=== PATIENT | male | born 1945 | race Caucasian/White ===

== ENCOUNTER 2016-08-17 16:00 | Observation (INO) | payer OTHER ==
--- NOTE | 2016-08-17 16:10 | PDOC ---
History of Present Illness <Beto Luna - Last Filed: 08/17/16 17:01> - History of Present Illness Initial Comments: 08/22/16 08:21 Chief complaint: Left facial numbness and blurred vision History of present illness: The patient is sent in by his primary physician , with the above symptoms starting this morning. 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 He has not noticed any facial weakness or drooping Review of systems: Admits a mild left occipital headache, throat pain primarily on the left side, which she attributes to a URI. No focal sensory or motor symptoms. No instability of gait. No chest pain, shortness of breath, abdominal pain, nausea, vomiting, diarrhea, urinary tract symptoms, hematemesis, melena, bloody stool. All remaining symptoms reviewed and found to be negative. Past medical history: atrial fibrillation maintained on Xarelto, hypertension, CAD with cardiac stents, right hip replacement, dental implant, Cunningham's palsy as noted. Social/family history: Social alcohol, no tobacco no prescription drugs, employed, active, without significant disability Family history: Reviewed and noncontributory including DVT/PE, other blood clots , [place], stroke, PVD Physical exam: Fully alert and oriented, well-developed well-nourished, no acute distress, cheerful and cooperative Afebrile, vital signs normal PERRLA 4 mm, fundi benign with sharp disc margins and good central venous pulsations. ENT clear Neck supple without bruit mass or nodes No carotid bruits or thrills. No bruits or thrills over the vertebral arteries Chest clear to P&A CV regular without murmur or gallop pulses full and symmetric no JVD or edema. No bruits carotid are otherwise Abdomen soft nontender without mass or organomegaly Neurological C2 to 12 intact. No demonstrable sensory deficit in the area of symptoms on the face. No facial weakness or drooping. Extremities no CCE Skin clear, no rash, adequate turgor and mucous membranes Impression: Patient with A. fib on anticoagulants, rule out CVA, TIA, most likely vertebral artery or carotid artery dissection Plan: CT and further imaging depending on results. Discussion with the patient' s primary physician, children's service worker. <Marlon Dewey - Last Filed: 08/22/16 08:29> - General Chief Complaint: CVA/TIA Stated Complaint: LEFT FACIAL NUMBNESS Time Seen by Provider: 08/17/16 16:07 Past History <Beto Luna - Last Filed: 08/17/16 17:01> - Past Medical History Anemia: No Asthma: Yes ( CHILD) Cancer: No Cardiac Disorders: Yes CVA: No COPD: No CHF: No Dementia: No Diabetes: Yes GI Disorders: No Disorders: No HTN: Yes Hypercholesterolemia: Yes Liver Disease: No Seizures: No Thyroid Disease: No - Surgical History Abdominal Surgery: No Appendectomy: No Cardiac Surgery: Yes (CARDIAC STENT 1997 2013) Cholecystectomy: No Lung Surgery: No Neurologic Surgery: No Orthopedic Surgery: Yes (LEFT HIP REPLACEMENT) - Immunization History Td Vaccination: No Immunization Up to Date: No - Psycho/Social/Smoking Cessation Hx Anxiety: No Suicidal Ideation: No Smoking Status: No Smoking History: Former smoker Have you smoked in the past 12 months: No Number of Cigarettes Smoked Daily: 0 If you are a former smoker, when did you quit?: 1995 Hx Alcohol Use: Yes Drug/Substance Use Hx: No Substance Use Type: Alcohol Hx Substance Use Treatment: No <Marlon Dewey - Last Filed: 08/22/16 08:29> - Past Medical History Allergies/Adverse Reactions: Allergies Allergy/AdvReac Type Severity Reaction Status Date / Time epinephrine Allergy Intermediate Verified 11/22/15 14:15 Iodinated Contrast Media - Allergy Intermediate Hives Verified 11/22/15 14:15 Oral and ticlopidine HCl [From Ticlid] Allergy Intermediate Rash Verified 11/22/15 14:15 warfarin sodium Allergy Verified 08/17/16 21:17 [From Coumadin] IV contrast Allergy Uncoded 08/17/16 17:43 Home Medications: Ambulatory Orders Allopurinol [Zyloprim -] 300 mg PO DAILY 11/22/15 Amlodipine Besylate 10 mg PO DAILY 11/22/15 Aspirin [Nanci Chewable Aspirin] 81 mg PO DAILY 11/22/15 Atenolol [Tenormin -] 50 mg PO DAILY 11/22/15 Furosemide 20 mg PO DAILY 11/22/15 Losartan Potassium [Cozaar] 100 mg PO DAILY 11/22/15 Potassium Chloride [Klor-Con M15] 15 meq PO DAILY 11/22/15 Rosuvastatin Calcium [Crestor] 20 mg PO DAILY 11/22/15 Sitagliptin Phosphate [Januvia] 50 mg PO DAILY 11/22/15 Rivaroxaban [Xarelto -] 20 mg PO DAILY 08/17/16 Prednisone [Deltasone -] 5 mg PO ASDIR #78 tab 08/18/16 Valacyclovir HCl [Valtrex -] 1,000 mg PO TID #21 tablet 08/18/16 *Physical Exam - Vital Signs Last Vital Signs Temp Pulse Resp BP Pulse Ox 97.8 F 52 L 18 164/67 100 08/17/16 16:00 08/17/16 16:00 08/17/16 16:00 08/17/16 16:00 08/17/16 16:00 <Beto Luna - Last Filed: 08/17/16 17:01> ED Treatment Course - RADIOLOGY Radiograph Interpretation: 08/17/16 16:[address] WITHOUT CONTRAST impressions reported by : No evidence of acute intracranial pathology. <Beto Luna - Last Filed: 08/17/16 17:01> - LABORATORY CBC & Chemistry Diagram: 08/18/16 07:00 08/18/16 07:00 <Marlon Dewey - Last Filed: 08/22/16 08:29> Progress Note - Progress Note Progress Note: With primary physician, Dr. Lind. Discussed the concern regarding vertebral artery disease or dissection. He agrees that imaging study should be performed and recommends contacting the patient's children's service worker regarding the status of the stents Dr. Valera was contacted by phone. He is the patient's children's service worker. He states that there is no contraindication to MRI with immature cardiac stent. However, upon further questioning the patient revealed that he had a hip prosthesis as well as dental implants, which are contraindications. Further questioning of the patient revealed that his reaction to contrast dye in the past was minor, consisting only of mild pruritus and a few welts on his right arm. He agrees to receive contrast with premedication.Benadryl and steroids will be given prior to CTA. <Marlon Dewey - Last Filed: 08/22/16 08:29> Medical Decision Making - Medical Decision Making 08/17/16 18:18 CT without contrast is negative. No intracranial bleed or other abnormal findings were revealed. Continued concern for vertebral artery disease because of the patient's sore throat and occipital headache, as well as unexplained facial numbness and blurred vision. Imaging of the circulatory system was discussed with the primary physician as well as children's service worker. MRA would be ideal, but the patient has a hip prosthesis as well as dental implants. CTA will be attempted, with premedication because of a mild prior reaction to contrast material which included only itching and a few welts of his right arm. CTA performed with premedication, without incident. No ALLERGIC reaction developed. There was no pruritus, urticaria, respiratory or cardiac symptoms. Awaiting radiologist interpretation of CTA. Symptoms have been stable. Signed out to Dr. Cueto at 7 PM pending reading of the CT and further medical management. 08/22/16 08:27 <Marlon Dewey - Last Filed: 08/22/16 08:29> *DC/Admit/Observation/Transfer - Attestations Scribe Attestion: 08/17/16 17:01 Documentation prepared by Beto Luna, acting as medical specialist for Marlon Resendiz MD. <Beto Luna - Last Filed: 08/17/16 17:01> <Marlon Dewey - Last Filed: 08/22/16 08:29> Diagnosis at time of Disposition: Left facial numbness - Discharge Dispostion Disposition: HOME Condition at time of disposition: Improved - Prescriptions - Referrals
[2016-08-17 16:14] VITALS: BMI 28.5
[2016-08-17 17:51] LABS: BASOPHIL 0.7 % (0-2.0); EOSINOPHIL 6.7 % (0-4.5); MCH 31.9 pg (25.7-33.7); MCHC 33.3 g/dl (32.0-35.9); MEAN CELL VOLUME 95.8 fl (80-96); MEAN PLT VOLUME 7.7 fl (7.5-11.1); NEUTROPHILS 60.5 % (42.8-82.8); PLATELET COUNT 248 K/MM3 (134-434); RDW 12.9 % (11.9-15.9); WHITE BLOOD COUNT 8.3 K/mm3 (4.0-10.0)
[2016-08-17 18:05] LABS: ALBUMIN 4.3 g/dl (3.5-5.0); BILIRUBIN,TOTAL 1.2 mg/dl (0.2-1.0); CALCIUM 9.3 mg/dl (8.4-10.2); CREATININE 1.3 mg/dl (0.6-1.3); TOT PROT 7.2 g/dl (6.4-8.3)
[2016-08-17] MEDS ORDERED: methylPREDNISolone NA SUCC 125 MG/2 ML VIAL ONE (18:11)
[2016-08-17] MEDS ORDERED: SODIUM CHLORIDE 1,000 ML IV STA (18:13)
[2016-08-17] MEDS ORDERED: methylPREDNISolone NA SUCC 125 MG/2 ML VIAL IVPB ONE (18:14)
--- NOTE | 2016-08-17 21:16 | PDOC ---
*Physical Exam - Vital Signs Last Vital Signs Temp Pulse Resp BP Pulse Ox 97.8 F 58 L 16 135/76 98 08/17/16 16:00 08/17/16 19:00 08/17/16 19:00 08/17/16 19:00 08/17/16 19:00 ED Treatment Course - LABORATORY CBC & Chemistry Diagram: 08/17/16 17:30 08/17/16 17:30 - ADDITIONAL ORDERS Additional order review: Laboratory Results 08/17/16 17:30 Sodium 135 L Potassium 4.2 Chloride 101 Carbon Dioxide 26 Anion Gap 8 BUN 16 Creatinine 1.3 Creat Clearance w eGFR 54.73 Random Glucose 144 H Calcium 9.3 Total Bilirubin 1.2 H AST 39 ALT 37 Alkaline Phosphatase 53 Total Protein 7.2 Albumin 4.3 08/17/16 17:30 RBC 4.59 MCV 95.8 MCHC 33.3 RDW 12.9 MPV 7.7 Neutrophils % 60.5 Lymphocytes % 25.4 Monocytes % 6.7 Eosinophils % 6.7 H Basophils % 0.7 - Medications Given in the ED: ED Medications Discontinued Medications Generic Name Dose Route Start Last Admin Trade Name Epiq PRN Reason Stop Dose Admin Diphenhydramine HCl 50 mg 08/17/16 18:13 08/17/16 18:15 Benadryl Injection - IVPUSH 08/17/16 18:14 50 mg ONCE ONE Administration Sodium Chloride 1,000 mls @ 1,000 mls/hr 08/17/16 18:13 08/17/16 17:30 Normal Saline - IV 08/17/16 19:12 1,000 mls/hr ASDIR STA Administration Methylprednisolone Sodium Succinate 125 mg 08/17/16 18:14 08/17/16 18:20 Solu-Medrol - IVPB 08/17/16 18:15 125 mg ONCE ONE Administration Progress Note - Progress Note Progress Note: Care of this patient received from Dr. Nowak. Briefly, this 71-year-old patient with a history of coronary artery disease/ hypertension/Cunningham's palsy was sent here by his PMD, Dr. Lind. The patient had called Dr. Lind after developing left facial numbness today. The patient states that when he had [place]'s palsy a few years ago he also had numbness of the left side of his face. He states that it is very similar to what he felt at that time. He has not, however, had any weakness of his face today. He denies any other neurologic symptoms. Noncontrast head CT was negative for acute abnormalities Because the patient has hip prosthesis and dental implants, MRA could not be performed to rule out vascular dissection or aneurysm. CT angiogram was performed (with premedication with diphenhydramine/prednisolone because of possible IV contrast ALLERGY). CTA of the brain showed no evidence of intracranial aneurysm, stenosis, occlusion or dissection. The patient was somewhat sleepy for a while after the IV Benadryl but stated that he had some improvement in the numbness in the left side of his face. No new symptoms reported. Results discussed with Dr. Lind. Neurology was consult to by phone for discussion of the case and for advice regarding admission versus outpatient follow-up. Since the patient has been followed by Dr. Marietta Orozco, she was contacted by phone. She states that she does not admit to this hospital but given the patient's risk factors, she suggested that he should be admitted for observation, with neurologic consultation/echocardiogram. Neurology service generation technician (Dr. Lolis castle) contacted and case discussed with . Likewise, she recommended admission for observation, neurologic consultation and echocardiogram. Results of the workup, as well as recommendations for observation discussed with the patient and his . After speaking to Dr. Lind by phone, patient agreed to observation admission. Admission will be through [facility] service: Dr. Brandt contacted and patient admitted to her service. Consultation with [facility] as well as [facility] cardiology group will be obtained. Medical Decision Making - Medical Decision Making 08/17/16 22:53 Case discussed with [place] neurologic consult: Patient should be admitted as observation for full neurologic consultation and echocardiogram. This was communicated to the patient and his as well as patient's PMD, Dr. Lind. Case discussed with Dr. Wilcox of [facility]. Patient will be admitted for observation. *DC/Admit/Observation/Transfer Diagnosis at time of Disposition: Left facial numbness - Discharge Dispostion Condition at time of disposition: Stable Admit: Yes - Referrals - Patient Instructions - Post Discharge Activity
[2016-08-18] MEDS ORDERED: amLODIPine BESYLATE 5 MG TABLET (FP) PO SCH ×3 (00:30→10:00)
[2016-08-18] MEDS ORDERED: ROSUVASTATIN CA 20 MG TABLET (FP) PO SCH ×2 (00:30→22:00)
[2016-08-18] MEDS ORDERED: RIVAROXABAN 20 MG TABLET PO SCH ×2 (00:30→10:00)
[2016-08-18] MEDS ORDERED: ALLOPURINOL 100 MG TABLET (FP) PO SCH ×3 (00:30→10:00)
--- NOTE | 2016-08-18 01:03 | HP ---
CHIEF COMPLAINT: Left facial numbness PCP: Dr. Lind HISTORY OF PRESENT ILLNESS: This is a 71 year old male with a past medical history of [place] palsy L side, DM , HTN, HLD, CAD s/p stent, atrial fibrillation who presented to the emergency department with left facial numbness and headache. Pt denies any trouble walking or dizziness. States he had a sore throat a few days ago, but that has since resolved. Pt likens the sensation on the left side of his face to the same sensation he had towards the end of his bells palsy episode. Denies CP, SOB , abdominal pain, N/V/D. ER course was notable for: (1) Negative CT head (2) Normal CTA brain Recent Travel: pt denies PAST MEDICAL HISTORY: Sciota palsy 3 years ago Asthma as a child, no recurrence DM HTN HLD CAD s/p stent , allergies atrial fibrillation on xarelto PAST SURGICAL HISTORY: L hip replacement dental implants stent placement Social History: Smoking: quit 20 years ago, 60packyear history Alcohol: occasional - holidays/spec occ Drugs: pt denies Family History: mother age 82, CVA father age 64, "circulatory collapse," had HTN and angina sister age 72, some kind of CA, had BrCA in her 50s brother with ?urethral / bladder CA, s/p cystectomy, s/p ileal conduit Allergies epinephrine Allergy (Intermediate, Verified 11/22/15 14:15) Iodinated Contrast Media - Oral and Allergy (Intermediate, Verified 11/22/15 14: 15) Hives ticlopidine HCl [From Ticlid] Allergy (Intermediate, Verified 11/22/15 14:15) Rash warfarin sodium [From Coumadin] Allergy (Verified 08/17/16 21:17) IV contrast Allergy (Uncoded 08/17/16 17:43) HOME MEDICATIONS: 3 Medication Instructions Recorded Allopurinol [Zyloprim -] 300 mg PO DAILY 11/22/15 Amlodipine Besylate 10 mg PO DAILY 11/22/15 Aspirin [Nanci Chewable] 81 mg PO DAILY 11/22/15 Atenolol [Tenormin -] 50 mg PO DAILY 11/22/15 Furosemide 20 mg PO DAILY 11/22/15 Losartan Potassium [Cozaar] 100 mg PO DAILY 11/22/15 Potassium Chloride [Klor-Con M15] 15 meq PO DAILY 11/22/15 Rosuvastatin Calcium [Crestor] 20 mg PO DAILY 11/22/15 Sitagliptin Phosphate [Januvia] 50 mg PO DAILY 11/22/15 Rivaroxaban [Xarelto -] 20 mg PO DAILY 08/17/16 REVIEW OF SYSTEMS CONSTITUTIONAL: Absent: fever, chills, diaphoresis, generalized weakness, malaise, loss of appetite, weight change HEENT: Absent: rhinorrhea, nasal congestion, throat pain, throat swelling, difficulty swallowing, mouth swelling, ear pain, eye pain, visual changes CARDIOVASCULAR: Absent: chest pain, syncope, palpitations, irregular heart rate, lightheadedness , peripheral edema RESPIRATORY: Absent: cough, shortness of breath, dyspnea with exertion, orthopnea, wheezing, stridor, hemoptysis GASTROINTESTINAL: Absent: abdominal pain, abdominal distension, nausea, vomiting, diarrhea, constipation, melena, hematochezia GENITOURINARY: Absent: dysuria, frequency, urgency, hesitancy, hematuria, flank pain, genital pain MUSCULOSKELETAL: Absent: myalgia, arthralgia, joint swelling, back pain, neck pain SKIN: Absent: rash, itching, pallor HEMATOLOGIC/IMMUNOLOGIC: Absent: easy bleeding, easy bruising, lymphadenopathy, frequent infections ENDOCRINE: Absent: unexplained weight gain, unexplained weight loss, heat intolerance, cold intolerance NEUROLOGIC: Present: headache, focal weakness or paresthesias Absent: dizziness, unsteady gait, seizure, mental status changes, bladder or bowel incontinence PSYCHIATRIC: Absent: anxiety, depression, suicidal or homicidal ideation, hallucinations. PHYSICAL EXAMINATION Vital Signs - 24 hr 3 08/17/16 08/17/16 08/17/16 16:00 19:00 23:02 Temperature 97.8 F 98.9 F Pulse Rate 52 L Pulse Rate [ 58 L 61 Left Apical] Respiratory 18 16 18 Rate Blood Pressure 164/67 Blood Pressure 135/76 146/66 [Right Arm] O2 Sat by Pulse 100 98 96 Oximetry (%) 3 08/17/16 23:34 Temperature 97.9 F Pulse Rate 59 L Pulse Rate [ Left Apical] Respiratory 19 Rate Blood Pressure 151/56 Blood Pressure [Right Arm] O2 Sat by Pulse Oximetry (%) GENERAL: Awake, alert, and fully oriented, in no acute distress. HEAD: Normal with no signs of trauma. EYES: Pupils equal, round and reactive to light, extraocular movements intact, sclera anicteric, conjunctiva clear. No lid lag. EARS, NOSE, THROAT: Ears normal, nares patent, oropharynx clear without exudates. Moist mucous membranes. NECK: Normal range of motion, supple without lymphadenopathy, JVD, or masses. LUNGS: Breath sounds equal, clear to auscultation bilaterally. No wheezes, and no crackles. No accessory muscle use. HEART: Regular rate and rhythm, normal S1 and S2 without murmur, rub or gallop. ABDOMEN: Soft, nontender, not distended, normoactive bowel sounds, no guarding, no rebound, no masses. No hepatomegaly or splenomegaly. MUSCULOSKELETAL: Normal range of motion at all joints. No bony deformities or tenderness. No CVA tenderness. UPPER EXTREMITIES: 2+ pulses, warm, well-perfused. No cyanosis. No clubbing. Cap refill <2 seconds. No peripheral edema. LOWER EXTREMITIES: 2+ pulses, warm, well-perfused. No calf tenderness. No peripheral edema. NEUROLOGICAL: Cranial nerves II-XII intact. Normal speech. Normal gait. no focal weakness, MS equal bilateral upper and lower ext 5/5, no pronator drift PSYCHIATRIC: Cooperative. Good eye contact. Appropriate mood and affect. SKIN: Warm, dry, normal turgor, no rashes or lesions noted. Laboratory Results - last 24 hr 3 08/17/16 08/17/16 08/17/16 17:30 17:30 23:45 WBC 8.3 RBC 4.59 Hgb 14.6 Hct 43.9 MCV 95.8 MCHC 33.3 RDW 12.9 Plt Count 248 MPV 7.7 Neutrophils % 60.5 Lymphocytes % 25.4 Monocytes % 6.7 Eosinophils % 6.7 H Basophils % 0.7 Sodium 135 L Potassium 4.2 Chloride 101 Carbon Dioxide 26 Anion Gap 8 BUN 16 Creatinine 1.3 Creat Clearance w eGFR 54.73 POC Glucometer 217 Random Glucose 144 H Calcium 9.3 Total Bilirubin 1.2 H AST 39 ALT 37 Alkaline Phosphatase 53 Total Protein 7.2 Albumin 4.3 ECG: NSR, rate 7, sinus arrhythmia, QTC [address]: Impression: No evidence of acute intracranial pathology CTA Brain: IMPRESSION: NO ACUTE ABNORMALITY. No evidence of intracranial aneurysm, stenosis, occlusion or dissection ASSESSMENT/PLAN: 71yM with a PMH DM, HTN, HLD, CAD s/p stent, atrial fibrillation and [place] palsy presented to the ED with left side facial numbness. He is being admitted for observation and further management. L facial numbness r/o TIA - CT head and CTA brain unremarkable - neurological exam benign - neurology consult in AM - echocardiogram as per neurology Atrial fibrillation-paroxysmal? - on xarelto. Cont same. - now in sinus rhythm - cont atenolol - cardiac monitoring HTN - Cont amlodipine and atenolol. - SBP elevated at times. Cont to monitor and adjust meds PRN HLD - cont crestor CAD - cont ASA, crestor, atenolol. maintain BP control DM - cont home januvia - refusing insulin Sliding scale - cont FSBS AC/HS DVT PPX - low risk, pt ambulatory and LOS expected <48h - cont home xarelto FEN - tolerating po fluids - repeat bmp in am - diabetic diet Dispo: Pt currently requires inpatient observation and cardiac monitoring. Visit type - Emergency Visit Emergency Visit: Yes ED Registration Date: 08/17/16 Care time: The patient presented to the Emergency Department on the above date and was hospitalized for further evaluation of their emergent condition. - New Patient This patient is new to me today: Yes Date on this admission: 08/18/16 - Critical Care Critical Care patient: No
[2016-08-18] MEDS: INSULIN SLIDING SCALE (NOVOLOG) 1 VIAL SQ SCH ×3 (06:48→17:02)
[2016-08-18] MEDS ORDERED: sitaGLIPtin PHOSPHATE 50 MG TABLET PO SCH (07:00)
[2016-08-18 08:23] LABS: MCH 31.3 pg (25.7-33.7); MCHC 33.2 g/dl (32.0-35.9); MEAN CELL VOLUME 94.4 fl (80-96); NEUTROPHILS 90.4 % (42.8-82.8); PLATELET COUNT 227 K/MM3 (134-434); RDW 12.9 % (11.9-15.9); WHITE BLOOD COUNT 10.8 K/mm3 (4.0-10.0)
[2016-08-18 08:33] LABS: CALCIUM 8.7 mg/dl (8.4-10.2); CREATININE 1.2 mg/dl (0.6-1.3); MAGNESIUM 1.9 mg/dL (1.8-2.4); PHOSPHOROUS 3.5 mg/dl (2.5-4.6)
[2016-08-18] MEDS ORDERED: POTASSIUM CHLORIDE 15 MEQ PO SCH (10:00)
[2016-08-18] MEDS ORDERED: LOSARTAN POTASSIUM 50 MG TABLET (FP) PO SCH (10:00)
[2016-08-18] MEDS ORDERED: POTASSIUM CHLORIDE 40 MEQ/30 ML UNIT DOSE CUP PO SCH (10:00)
[2016-08-18] MEDS ORDERED: ATENOLOL 50 MG TABLET (FP) PO SCH (10:00)
[2016-08-18] MEDS ORDERED: ASPIRIN 81 MG CHEWABLE TABLETS PO SCH (10:00)
[2016-08-18] MEDS ORDERED: FUROSEMIDE 20 MG TABLET (FP) PO SCH (10:00)
--- NOTE | 2016-08-18 12:18 | EKG ---
Test Reason : Blood Pressure : / mmHG Vent. Rate : 067 BPM Atrial Rate : 067 BPM P-R Int : 170 ms QRS Dur : 090 ms QT Int : 418 ms P-R-T Axes : 047 -26 009 degrees QTc Int : 441 ms SINUS RHYTHM WITH SINUS ARRHYTHMIA NORMAL ECG NO PREVIOUS ECGS AVAILABLE Confirmed by MO ARTHUR MD ([id number]) on 08/18/2016 12:18:12 PM Referred By: Confirmed By:MO ARTHUR MD
--- NOTE | 2016-08-18 13:04 | PN ---
[id number] any headache or blurred vision. OBJECTIVE: patient is a 71 year old male with a past medical history of [place] palsy L side, DM, HTN, HLD, CAD s/p stent, atrial fibrillation (xarelto). patient was admitted to observation from the emergency department for r/o tia vs cva. Vital Signs Period Temp Pulse Resp BP Sys/Shields Pulse Ox Last 24 Hr 97.9 F-98.0 F 59-67 18-19 145-151/56-63 96-96 GENERAL: The patient is awake, alert, and fully oriented, in no acute distress. HEAD: Normal with no signs of trauma. EYES: PERRL, extraocular movements intact, sclera anicteric, conjunctiva clear. ptosis of left eye ENT: Ears normal, nares patent, oropharynx clear without exudates, moist mucous membranes. NECK: Trachea midline, full range of motion, supple. LUNGS: Breath sounds equal, clear to auscultation bilaterally, no wheezes, no crackles, no accessory muscle use. HEART: Regular rate and rhythm, S1, S2 , 3/6 systolic murmur, no rub or gallop. ABDOMEN: Soft, nontender, nondistended, normoactive bowel sounds, no guarding, no rebound, no hepatosplenomegaly, no masses. EXTREMITIES: 2+ pulses, warm, well-perfused, no edema. NEUROLOGICAL: flattening noted of left nasal labial fold, Normal speech, gait not observed, minimal left sided facial droop. PSYCH: Normal mood, normal affect. SKIN: Warm, dry, normal turgor, no rashes or lesions noted Laboratory Results - last 24 hr 08/17/16 08/18/16 08/18/16 23:45 06:41 07:00 WBC 10.8 H D RBC 4.19 Hgb 13.1 D Hct 39.6 MCV 94.4 MCHC 33.2 RDW 12.9 Plt Count 227 MPV 8.0 Neutrophils % 90.4 H D Lymphocytes % 9.0 D Monocytes % 0.6 L D Eosinophils % 0.0 D Basophils % 0.0 Sodium Potassium Chloride Carbon Dioxide Anion Gap BUN Creatinine POC Glucometer 217 163 Random Glucose Calcium Phosphorus Magnesium 08/18/16 08/18/16 07:00 11:36 WBC RBC Hgb Hct MCV MCHC RDW Plt Count MPV Neutrophils % Lymphocytes % Monocytes % Eosinophils % Basophils % Sodium 134 L Potassium 4.0 Chloride 103 Carbon Dioxide 25 Anion Gap 6 L BUN 21 H D Creatinine 1.2 POC Glucometer 194 Random Glucose 190 H D Calcium 8.7 Phosphorus 3.5 Magnesium 1.9 Active Medications Generic Name Dose Route Start Last Admin Trade Name Freq PRN Reason Stop Dose Admin Allopurinol 300 mg 08/18/16 01:05 08/18/16 01:05 Zyloprim - PO 300 mg HS SUE Administration Amlodipine Besylate 10 mg 08/18/16 01:05 08/18/16 01:05 Norvasc - PO 10 mg HS SUE Administration Aspirin 81 mg 08/18/16 10:00 08/18/16 09:28 Asa - PO 81 mg DAILY SUE Administration Atenolol 50 mg 08/18/16 10:00 08/18/16 09:28 Tenormin - PO 50 mg DAILY SUE Administration Furosemide 20 mg 08/18/16 10:00 08/18/16 09:28 Lasix - PO 20 mg DAILY SUE Administration Insulin Aspart 1 vial 08/18/16 07:00 08/18/16 11:38 Novolog Vial Sliding Scale - SQ Not Given ACHS [facility] Protocol Losartan Potassium 100 mg 08/18/16 10:00 08/18/16 09:28 Cozaar - PO 100 mg DAILY SUE Administration Potassium Chloride 15 meq 08/18/16 10:00 08/18/16 09:28 Kcl Oral Solution - PO 15 meq DAILY SUE Administration Prednisone 60 mg 08/18/16 12:54 Deltasone - PO 08/18/16 12:55 ONCE ONE Rivaroxaban 20 mg 08/18/16 22:00 Xarelto - PO HS SUE Rosuvastatin Calcium 20 mg 08/18/16 00:30 08/18/16 01:10 Crestor - PO 20 mg HS SUE Administration Sitagliptin Phosphate 50 mg 08/18/16 07:00 08/18/16 06:48 Januvia - PO 50 mg AM SUE Administration ASSESSMENT/PLAN: ECG: NSR, rate 7, sinus arrhythmia, QTC [address]: Impression: No evidence of acute intracranial pathology CTA Brain: IMPRESSION: NO ACUTE ABNORMALITY. 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 lyme's titer ordered. - awaiting neurology evaluation 2) card - pmh of paroxysmal afib, continue xarelto - echo, grade I diastolic dysfunction, lv wnl, moderate as - continue atenolol, lasix, and amlodpine. - pmh of hyperlipidemia continue crestor 3) endo:niddm - continue januvia - pt refuses fingerstics and insulin sliding scale f/e/n low cholesterol diet ppx on xarelto low risk, pt ambulatory and LOS expected <48h Dispo: Pt currently requires inpatient observation and cardiac monitori Visit type - Emergency Visit Emergency Visit: Yes ED Registration Date: 08/17/16 Care time: The patient presented to the Emergency Department on the above date and was hospitalized for further evaluation of their emergent condition. - New Patient This patient is new to me today: Yes Date on this admission: 08/18/16 - Critical Care Critical Care patient: No - Discharge Referral Referred to [facility] No
[2016-08-18] MEDS ORDERED: predniSONE 20 MG TABLET (UD) PO ONE (13:15)
[2016-08-18] MEDS ORDERED: valACYclovir HCL 500 MG TABLET (FP) PO SCH ×2 (14:00→14:20)
[2016-08-18 15:22] VITALS: BP 126/59; PULSE 55; TEMP 97.7
[2016-08-18 18:16] LABS: PH,URINE 5.5 (4.5-8); URINE APPEARANCE Clear; URINE BILIRUBIN Negative (NEGATIVE); URINE BLOOD Negative (NEGATIVE); URINE COLOR YELLOW; URINE GLUCOSE (UA) Negative (NEGATIVE); URINE KETONE Negative (NEGATIVE); URINE LEUK ESTERASE Trace (NEGATIVE); URINE NITRITE Negative (NEGATIVE); URINE PROTEIN Negative (NEGATIVE); URINE UROBILINOGEN 0.2 E.U/dl (0.2-1.0)
--- NOTE | 2016-08-18 20:45 | CONSULT ---
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 - Alcohol/Substance Use Hx Alcohol Use: Yes - Smoking History Smoking history: Former smoker Have you smoked in the past 12 months: No Aproximately how many cigarettes per day: 0 If you are a former smoker, when did you quit?: 1995 Home Medications - Allergies Allergies/Adverse Reactions: Allergies Allergy/AdvReac Type Severity Reaction Status Date / Time epinephrine Allergy Intermediate Verified 11/22/15 14:15 Iodinated Contrast Media - Allergy Intermediate Hives Verified 11/22/15 14:15 Oral and ticlopidine HCl [From Ticlid] Allergy Intermediate Rash Verified 11/22/15 14:15 warfarin sodium Allergy Verified 08/17/16 21:17 [From Coumadin] IV contrast Allergy Uncoded 08/17/16 17:43 - Home Medications Home Medications: Ambulatory Orders Allopurinol [Zyloprim -] 300 mg PO DAILY 11/22/15 Amlodipine Besylate 10 mg PO DAILY 11/22/15 Aspirin [Nanci Chewable] 81 mg PO DAILY 11/22/15 Atenolol [Tenormin -] 50 mg PO DAILY 11/22/15 Furosemide 20 mg PO DAILY 11/22/15 Losartan Potassium [Cozaar] 100 mg PO DAILY 11/22/15 Potassium Chloride [Klor-Con M15] 15 meq PO DAILY 11/22/15 Rosuvastatin Calcium [Crestor] 20 mg PO DAILY 11/22/15 Sitagliptin Phosphate [Januvia] 50 mg PO DAILY 11/22/15 Rivaroxaban [Xarelto -] 20 mg PO DAILY 08/17/16 Physical Exam Vital Signs: Vital Signs Temperature 97.7 F 08/18/16 15:21 Pulse Rate 55 L 08/18/16 15:21 Respiratory Rate 18 08/18/16 19:55 Blood Pressure 126/59 08/18/16 15:21 O2 Sat by Pulse Oximetry (%) 96 08/18/16 06:50 Constitutional: Yes: Well Nourished, No Distress, Anxious, Other Eyes: Yes: EOM Intact, PERRL. No: Diplopia, Ptosis HENT: Yes: Atraumatic Neck: Yes: Supple Cardiovascular: Yes: Regular Rate and Rhythm Respiratory: Yes: Regular Neurological: Yes: Alert, Oriented, Babinski negative, Cran Nerves II-XII Intact. No: Aphasia, Dysarthria, Loss of Sensation, Weakness Labs: CBC, BMP 08/18/16 07:00 08/18/16 07:00 Assessment/Plan Brain CTA and CT negative with no evidence of CAD Neurologically stable for discharge to the care of his primary care physician with follow up with his private neurologist for continued care.
[2016-08-18] MEDS ORDERED: RIVAROXABAN 10 MG TABLET PO SCH (22:00)
--- NOTE | 2016-08-24 12:02 | DS ---
[id number] numbness to left side of face. OBJECTIVE: patient is a 71 year old male with a past medical history of [place] palsy L side, DM, HTN, HLD, CAD s/p stent, atrial fibrillation who presented to the emergency department with left facial numbness and headache. Pt denies any trouble walking or dizziness. States he had a sore throat a few days ago, but that has since resolved. Pt likens the sensation on the left side of his face to the same sensation he had towards the end of his bells palsy episode. Denies CP, SOB, abdominal pain, N/V/D. ER course was notable for: (1) Negative CT head (2) Normal CTA brain PHYSICAL EXAM GENERAL: The patient is awake, alert, and fully oriented, in no acute distress. HEAD: Normal with no signs of trauma. EYES: PERRL, extraocular movements intact, sclera anicteric, conjunctiva clear. ptosis of left eye ENT: Ears normal, nares patent, oropharynx clear without exudates, moist mucous membranes. NECK: Trachea midline, full range of motion, supple. LUNGS: Breath sounds equal, clear to auscultation bilaterally, no wheezes, no crackles, no accessory muscle use. HEART: Regular rate and rhythm, S1, S2 , 3/6 systolic murmur, no rub or gallop. ABDOMEN: Soft, nontender, nondistended, normoactive bowel sounds, no guarding, no rebound, no hepatosplenomegaly, no masses. EXTREMITIES: 2+ pulses, warm, well-perfused, no edema. NEUROLOGICAL: flattening noted of left nasal labial fold, Normal speech, gait not observed, minimal left sided facial droop. PSYCH: Normal mood, normal affect. SKIN: Warm, dry, normal turgor, no rashes or lesions noted LABS CBC WBC 10.8 K/mm3 (4.0-10.0) H D 08/18/16 07:00 RBC 4.19 M/mm3 (4.00-5.60) 08/18/16 07:00 Hgb 13.1 GM/dl (11.7-16.9) D 08/18/16 07:00 Hct 39.6 % (35.4-49) 08/18/16 07:00 MCV 94.4 fl (80-96) 08/18/16 07:00 MCHC 33.2 g/dl (32.0-35.9) 08/18/16 07:00 RDW 12.9 % (11.9-15.9) 08/18/16 07:00 Plt Count 227 K/MM3 (134-434) 08/18/16 07:00 MPV 8.0 fl (7.5-11.1) 08/18/16 07:00 Neutrophils % 90.4 % (42.8-82.8) H D 08/18/16 07:00 Lymphocytes % 9.0 % (8-40) D 08/18/16 07:00 Monocytes % 0.6 % (3.8-10.2) L D 08/18/16 07:00 Eosinophils % 0.0 % (0-4.5) D 08/18/16 07:00 Basophils % 0.0 % (0-2.0) 08/18/16 07:00 CMP Sodium 134 mmol/L (136-145) L 08/18/16 07:00 Potassium 4.0 mmol/L (3.5-5.1) 08/18/16 07:00 Chloride 103 mmol/L (98-107) 08/18/16 07:00 Carbon Dioxide 25 mmol/L (22-28) 08/18/16 07:00 Anion Gap 6 (8-16) L 08/18/16 07:00 BUN 21 mg/dl (7-18) H D 08/18/16 07:00 Creatinine 1.2 mg/dl (0.6-1.3) 08/18/16 07:00 Creat Clearance w eGFR 54.73 (>60) 08/17/16 17:30 POC Glucometer 194 UNITS (()) 08/18/16 11:36 Random Glucose 190 mg/dl (74-106) H D 08/18/16 07:00 Calcium 8.7 mg/dl (8.4-10.2) 08/18/16 07:00 Phosphorus 3.5 mg/dl (2.5-4.6) 08/18/16 07:00 Magnesium 1.9 mg/dL (1.8-2.4) 08/18/16 07:00 Total Bilirubin 1.2 mg/dl (0.2-1.0) H 08/17/16 17:30 AST 39 U/L (10-42) 08/17/16 17:30 ALT 37 U/L (10-40) 08/17/16 17:30 Alkaline Phosphatase 53 U/L (32-92) 08/17/16 17:30 Total Protein 7.2 g/dl (6.4-8.3) 08/17/16 17:30 Albumin 4.3 g/dl (3.5-5.0) 08/17/16 17:30 IMAGING ECG: NSR, rate 7, sinus arrhythmia, QTC [address]: Impression: No evidence of acute intracranial pathology CTA Brain: IMPRESSION: NO ACUTE ABNORMALITY. No evidence of intracranial aneurysm, stenosis, occlusion or dissection HOSPITAL COURSE: patient was admitted from the emergency department to observation for r/o TIA. cta of head noted for no acute abnormality. 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 lyme's titer ordered. Dr Pulido, neurology was consulted. patient has a pmh of paroxysmal afib, continued xarelto. echo, grade I diastolic dysfunction, lv wnl, moderate as. continue atenolol, lasix, and amlodpin. patient's blood pressure remained well controlled. pmh of hyperlipidemia continued crestor, past medical history of niddm. continue januvia. patient declined fingerstics and insulin sliding scale Date of Admission:08/17/16 Date of Discharge: 08/24/16 Minutes to complete discharge: 45 Discharge Summary Reason For Visit: LEFT FACIAL NUMBNESS Condition: Improved - Instructions Diet, Activity, Other Instructions: resume regular diet continue taking valtrex and prednisone as prescribed take pepcid while you are taking prednisone continue taking home medication please follow up with your neurologist, Dr Chauhan within 1 week please follow up with your primary care physician Dr Lind within 1 week if fever, chest pain, shortness of breath develops please return to the emergency department. Referrals: Benja Lind MD [Primary Care Provider] - Amilcar Danielle MD [Staff Physician] - Disposition: HOME - Home Medications Comprehensive Discharge Medication List: Ambulatory Orders Allopurinol [Zyloprim -] 300 mg PO DAILY 11/22/15 Amlodipine Besylate 10 mg PO DAILY 11/22/15 Aspirin [Nanci Chewable Aspirin] 81 mg PO DAILY 11/22/15 Atenolol [Tenormin -] 50 mg PO DAILY 11/22/15 Furosemide 20 mg PO DAILY 11/22/15 Losartan Potassium [Cozaar] 100 mg PO DAILY 11/22/15 Potassium Chloride [Klor-Con M15] 15 meq PO DAILY 11/22/15 Rosuvastatin Calcium [Crestor] 20 mg PO DAILY 11/22/15 Sitagliptin Phosphate [Januvia] 50 mg PO DAILY 11/22/15 Rivaroxaban [Xarelto -] 20 mg PO DAILY 08/17/16 Prednisone [Deltasone -] 5 mg PO ASDIR #78 tab 08/18/16 Valacyclovir HCl [Valtrex -] 1,000 mg PO TID #21 tablet 08/18/16 This patient is new to me today: Yes Date on this admission: 08/18/16 Emergency Visit: Yes ED Registration Date: 08/17/16 Care time: The patient presented to the Emergency Department on the above date and was hospitalized for further evaluation of their emergent condition. Critical Care patient: No - Discharge Referral Referred to [facility] Med P.C.: No
== END 2016-08-18 21:00 | disposition home or self-care (01) ==
LOC: FER 16:00 → FM/S 23:11
PROVIDERS: ADMIT Internal Medicine; ATTEND Nurse Practitioner Family
DX: R20.0 Anesthesia of skin (principal); I48.0 Paroxysmal atrial fibrillation; I10 Essential (primary) hypertension; I25.10 Atherosclerotic heart disease of native coronary artery without angina pectoris; G51.0 Bell's palsy; Z95.5 Presence of coronary angioplasty implant and graft; Z96.641 Presence of right artificial hip joint; E11.9 Type 2 diabetes mellitus without complications
CPT/HCPCS: 36415; 70450-TC; 70496-TC; 80048; 80053; 81003; 83735; 84100; 85025; 86618; 93005; 93306-TC; 99285-25; G0378

== ENCOUNTER 2016-12-03 11:55 | Emergency (ER) | payer OTHER ==
[2016-12-03 12:17] VITALS: BP 143/55; PULSE 60; TEMP 98.3; BMI 28.1
--- NOTE | 2016-12-03 13:08 | PDOC ---
History of Present Illness - General Chief Complaint: Revisit,Wound Recheck Stated Complaint: RIGHT KNEE WOUND CHECK Time Seen by Provider: 12/03/16 12:05 - History of Present Illness Initial Comments: 12/03/16 13:03 71-year-old male with a past medical history of hypertension hyperlipidemia AODM , CAD, and Cunningham's palsy He was bit by a dog in his knees bilaterally 3 weeks ago Since that time he was seeing Dr. Juan, Dr. Brito, and Dr. Dos Santos He was on antibiotics for [address] Dos Santos debrided his wounds, especially on the right knee The nurse put iodoform packing in the wound, and the patient states that she cut multiple small pieces packed them under the edges of the wound When he went to change the dressing today, he was unable to get the small pieces of packing out that were packed/placed under the flap of the wound He comes here to have the remainder of the packing removed and the wound checked Past History - Past Medical History Allergies/Adverse Reactions: Allergies Allergy/AdvReac Type Severity Reaction Status Date / Time epinephrine Allergy Intermediate Verified 11/22/15 14:15 Iodinated Contrast Media - Allergy Intermediate Hives Verified 11/22/15 14:15 Oral and ticlopidine HCl [From Ticlid] Allergy Intermediate Rash Verified 11/22/15 14:15 warfarin sodium Allergy Verified 08/17/16 21:17 [From Coumadin] IV contrast Allergy Uncoded 08/17/16 17:43 Home Medications: Ambulatory Orders Amlodipine Besylate 10 mg PO DAILY 11/22/15 Aspirin [Nanci Chewable Aspirin] 81 mg PO DAILY 11/22/15 Atenolol [Tenormin -] 50 mg PO DAILY 11/22/15 Furosemide 20 mg PO DAILY 11/22/15 Losartan Potassium [Cozaar] 100 mg PO DAILY 11/22/15 Potassium Chloride [Klor-Con M15] 8 meq PO BID 11/22/15 Rosuvastatin Calcium [Crestor] 20 mg PO DAILY 11/22/15 Sitagliptin Phosphate [Januvia] 50 mg PO DAILY 11/22/15 Rivaroxaban [Xarelto -] 20 mg PO DAILY 08/17/16 Anemia: No Asthma: Yes ( CHILD) Cancer: No Cardiac Disorders: Yes (2 stents) CVA: No COPD: No CHF: No DVT: No Dementia: No Diabetes: Yes Dialysis: No GI Disorders: No Disorders: No HTN: Yes Hypercholesterolemia: Yes HIV: No Kidney Stones: No Liver Disease: No Psychiatric Problems: No Seizures: No Thyroid Disease: No Lung CA: No - Surgical History Abdominal Surgery: No Appendectomy: No Cardiac Surgery: Yes (CARDIAC STENT 1997 2013) Cholecystectomy: No Lung Surgery: No Neurologic Surgery: No Orthopedic Surgery: Yes (LEFT HIP REPLACEMENT) - Immunization History Td Vaccination: No Immunization Up to Date: No - Psycho/Social/Smoking Cessation Hx Anxiety: No Suicidal Ideation: No Smoking Status: No Smoking History: Former smoker Have you smoked in the past 12 months: No Number of Cigarettes Smoked Daily: 0 If you are a former smoker, when did you quit?: over 20 years ago Information on smoking cessation initiated: No Hx Alcohol Use: No Drug/Substance Use Hx: No Substance Use Type: None Hx Substance Use Treatment: No *Physical Exam - Vital Signs Last Vital Signs Temp Pulse Resp BP Pulse Ox 98.3 F 60 18 143/55 98 12/03/16 12:04 12/03/16 12:04 12/03/16 12:04 12/03/16 12:04 12/03/16 12:04 - Physical Exam Comments: 12/03/16 13:04 Physical exam Last Vital Signs Temp Pulse Resp BP Pulse Ox 98.3 F 60 18 143/55 98 12/03/16 12:04 12/03/16 12:04 12/03/16 12:04 12/03/16 12:04 12/03/16 12:04 The patient is alert and ambulatory and answering questions Head is normocephalic and atraumatic Right lower extremity On the right lateral knee, just above the knee, there is a wound that was debrided by Dr. Dos Santos on Sunday The wound is open, and it was cleansed thoroughly with peroxide and saline I explored under the wound edges with sterile Q-tips dipped in peroxide There was some iodoform packing stuck under the edge of the wound that I was able to remove I explored under all the edges of the wound thoroughly, and did not see any more iodoform stuck under the edges of the wound The wound was again irrigated with sterile peroxide and saline, and then irrigated again with plain sterile saline and cleansed thoroughly No further foreign body iodoform was seen A Neosporin dressing was placed Pt will folow up in Dr Dos Santos's office tomorrow for further care Medical Decision Making - Medical Decision Making 12/03/16 13:06 Patient needs to see Dr. Dos Santos and the nurse that placed the packing in the office tomorrow morning they will keep this dressing in place until seen by Dr. Dos Santos tomorrow *DC/Admit/Observation/Transfer Diagnosis at time of Disposition: Encounter for post surgical wound check - Discharge Dispostion Disposition: HOME Condition at time of disposition: Good - Referrals Referrals: Benja Lind MD [Primary Care Provider] - - Patient Instructions Additional Instructions: Keep the dressing clean and dry and in place until you are seen by Dr. Dos Santos in the office tomorrow You must be seen by Dr. Dos Santos and his nurse in the office tomorrow-please call first thing in the morning for an appointment time
== END 2016-12-03 13:13 | disposition home or self-care (01) ==
LOC: FER 11:55
DX: Z48.02 Encounter for removal of sutures (principal); I10 Essential (primary) hypertension; E78.5 Hyperlipidemia, unspecified; E11.9 Type 2 diabetes mellitus without complications; I25.10 Atherosclerotic heart disease of native coronary artery without angina pectoris; Z79.82 Long term (current) use of aspirin; Z95.5 Presence of coronary angioplasty implant and graft; Z87.891 Personal history of nicotine dependence
CPT/HCPCS: 99281-25

== ENCOUNTER 2023-09-26 07:38 | Day surgery (SDC) | payer OTHER ==
[2023-09-21 16:25] VITALS: BMI 25.8
[2023-09-26] MEDS: PHENYLEPHRINE 2.5% OPTHALMIC DROP 2ML BOTTLE ONE (08:05)
[2023-09-26] MEDS: CYCLOPENTOLATE 2% OPHTH SOLN 2 ML BOTTLE ONE (08:05)
[2023-09-26] MEDS: TROPICAMIDE 1% OPHTH SOLN 15 ML BOTTLE ONE (08:05)
[2023-09-26] MEDS: CIPROFLOXACIN 0.3% EYE DROPS 5 ML BOTTLE ONE (08:05)
[2023-09-26] MEDS ORDERED: LIDOCAINE 1% P/F 10 MG/ML VIAL ONE (08:43)
[2023-09-26] MEDS ORDERED: TETRACAINE 0.5% OPHTH SOLN 2 ML BOTTLE ONE (08:44)
[2023-09-26] MEDS ORDERED: NEO/POLYMYX B SULF/DEXAMETH OPHTHALMIC 5ML BOTTLE ONE (08:44)
[2023-09-26] MEDS ORDERED: BSS (NA/CA/MG/K) BALANCED SALT SOLUTION OPHTH SOLN 15 ML BOTTLE ONE (08:44)
[2023-09-26] MEDS ORDERED: CARBACHOL 0.01% INTRA-OCULAR 1.5 ML VIAL ONE (08:44)
[2023-09-26] MEDS ORDERED: MIDAZOLAM HCL 2 MG/2 ML SINGLE DOSE VIAL ONE (08:58)
[2023-09-26 10:14] VITALS: RESP 16
[2023-09-26 10:31] VITALS: BP 122/69; PULSE 74; TEMP 99
== END 2023-09-26 10:50 | disposition home or self-care (01) ==
LOC: FASU 07:38
PROVIDERS: ATTEND Ophthalmology
PROC: 08RJ3JZ Replacement of Right Lens with Synthetic Substitute, Percutaneous Approach (ICD-10-PCS; principal; 2023-09-26 09:34)
DX: H26.8 Other specified cataract (principal)
CPT/HCPCS: 66984; V2632; 82962